=== PATIENT | male | born 1985 | race Caucasian/White ===

== ENCOUNTER 2018-03-23 02:05 | Emergency (ER) | payer BC, MEDICAID ==
[~2018-03-23] VITALS: Ht 185.4 cm; Wt 79.4 kg
[2018-03-23 02:10] VITALS: BP_SYST 124
[2018-03-23] MEDS ORDERED: MAG HYDROX/AL HYDROX/SIMETH 30 ML, BELLADONNA ALKALOIDS/PHENOBARB 10 ML, LIDOCAINE VISC... PO ONE ×3 (02:30)
[2018-03-23] MEDS ORDERED: ALPRAZolam 0.25 MG TABLET PO ONE (02:30)
[2018-03-23 03:19] LABS: BASOPHILS # (AUTO) 0.1 K/uL (0.0-0.2); BASOPHILS % (AUTO) 0.9 % (0.0-2.0); EOSINOPHILS % (AUTO) 0.7 % (0.0-4.0); HEMOGLOBIN 14.9 g/dL (14.0-18.0); LYMPHOCYTES % (AUTO) 32.9 % (20.5-51.5); MEAN CORPUSCULAR HEMOGLOBIN 30 pg (27-31); MEAN CORPUSCULAR HGB CONC 33 % (32-36); MEAN CORPUSCULAR VOLUME 90 fL (79.0-98.0); MONOCYTES # (AUTO) 0.8 K/uL (0.0-1.0); MONOCYTES % (AUTO) 12.6 % (1.7-9.3); NEUTROPHILS # (AUTO) 3.1 K/uL (1.8-7.7); NEUTROPHILS % (AUTO) 52.9 % (40.0-70.0); PLATELET COUNT (AUTO) 244 K/uL (130-430); RED BLOOD CELL COUNT(AUTO) 4.98 MIL/uL (4.2-6.2); RED CELL DISTRIBUTION WIDTH 12.4 % (9.0-15.0)
[2018-03-23 03:29] LABS: ANION GAP 8 (5-15); CALCIUM 8.8 mg/dL (8.4-11.0); CHLORIDE 101 mmol/L (98-107); CREATININE 1.03 mg/dL (0.55-1.30); GLUCOSE 105 mg/dL (70-99); POTASSIUM 3.7 mmol/L (3.5-5.1); SODIUM SERUM 139 mmol/L (136-145); UREA NITROGEN, BLOOD 21 mg/dL (8-21)
[2018-03-23 03:37] LABS: ALANINE AMINOTRANSFERASE 35 U/L (12-78); ALBUMIN 3.8 g/dL (3.4-4.8); ASPARTATE AMINOTRANSFERASE 24 U/L (10-37); TOTAL BILIRUBIN 0.3 mg/dL (0.0-1.0)
[2018-03-23 03:38] LABS: GFR AFRICAN AMERICAN 107 mL/min (>90)
[2018-03-23 03:55] VITALS: BP_SYST 128
== END 2018-03-23 03:55 | disposition home or self-care (01) ==
LOC: SED 02:05
DX: F41.9 Anxiety disorder, unspecified (principal); R12 Heartburn
CPT/HCPCS: 36415; 71045; 80053; 84484; 85025; 93005; 99284; J2001

== ENCOUNTER 2019-06-28 11:25 | Emergency (ER) | payer BC, MEDICAID ==
[~2019-06-28] VITALS: Ht 185.4 cm; Wt 81.6 kg
--- NOTE | 2019-06-28 11:25 | NUR ---
Pt presented to the ER registration desk with unknown substance in his eyes, visual acuity performed by LEBRON Cooley, b/l eyes irrigated at the eye wash station for 10 minutes.
--- NOTE | 2019-06-28 11:40 | NUR ---
PT presents to the ER c/o L eye pain and blurry vision due to picking weeds and sap getting into his eyes x 40mins ago. Visual acuity done by LEBRON Cooley, 20/15 R 100/15 L. B/L eye swelling, only L eye pain 5/10 and redness. Pt denies dizzness, headache.
--- NOTE | 2019-06-28 11:40 | NUR ---
PATIENT TO ER #2
[2019-06-28 11:47] VITALS: BP_SYST 117
[2019-06-28 12:36] VITALS: BP_SYST 117
--- NOTE | 2019-06-28 12:36 | NUR ---
Patient given written and verbal discharge instructions and verbalizes understanding. ER MD discussed with patient the results and treatment provided. Patient in stable condition. ID arm band removed. Rx of tylenol and Belph given. Patient educated on pain management and to follow up with PMD. Pain Scale 0/10 Opportunity for questions provided and answered. Medication side effect fact sheet provided.
== END 2019-06-28 12:36 | disposition home or self-care (01) ==
LOC: SED 11:25
DX: H10.212 Acute toxic conjunctivitis, left eye (principal); F41.9 Anxiety disorder, unspecified; F12.90 Cannabis use, unspecified, uncomplicated; F17.210 Nicotine dependence, cigarettes, uncomplicated
CPT/HCPCS: 99283